=== PATIENT | male | born 1980 | race American Indian/Alaskan Native ===

== ENCOUNTER 2019-09-23 16:52 | Emergency (ER) | payer SELFPAY ==
[2019-09-23 17:45] VITALS: BP 173/81
[2019-09-23] MEDS ORDERED: TETANUS,DIPH,PERTUSS(ACELL) VACCINE 0.5 ML SYRINGE IM ONE (17:47)
--- NOTE | 2019-09-23 17:47 | Event Note ---
ED Screening Note ED Screening Note: piece of metal on his truck slipped and grabbed the piece of metal laceration to the left middle finger one hour ago unsure tetanus immunization This initial assessment/diagnostic orders/clinical plan/treatment(s) is/are subject to change based on patients health status, clinical progression and re- assessment by fellow clinical providers in the ED. Further treatment and workup at subsequent clinical providers discretion. Patient/guardian urged not to elope from the ED as their condition may be serious if not clinically assessed and managed. Initial orders include: tetanus, ACC evaluation
[2019-09-23] MEDS ORDERED: LIDOCAINE-MPF (1%) 10 MG/1 ML VIAL 5 ML ONE (18:54)
[2019-09-23] MEDS ORDERED: BUPIVACAINE/PF (0.25%) 2.5 MG/ML 10 ML VIAL INFILTRATI ONE (18:55)
[2019-09-23] MEDS ORDERED: SODIUM CHLORIDE IRRI 500 ML 500 ML IR ONE (18:57)
[2019-09-23] MEDS ORDERED: SODIUM CHLORIDE 0.9% IRR 500 ML BOTTLE IR ONE ×2 (19:06→19:20)
[2019-09-23] MEDS ORDERED: BUPIVACAINE/PF (0.25%) 2.5 MG/ML 30 ML VIAL INFILTRATI ONE (19:08)
[2019-09-23] MEDS ORDERED: LIDOCAINE (1%) 10 MG/1 ML VIAL 20 ML MDV INFILTRATI ONE (19:10)
[2019-09-23] MEDS ORDERED: LIDOCAINE-MPF (1%) 10 MG/1 ML VIAL 5 ML INFILTRATI ONE (19:11)
--- NOTE | 2019-09-23 19:29 | Emergency Department Report ---
HPI - General Chief Complaint: Wound/Laceration Time Seen by Provider: 09/23/19 17:43 - HPI HPI: Room 36 The patient is a 39-year-old male presenting with a chief complaint finger laceration. The patient states today at 16:30 while working on his car he accidentally cut his left middle finger on a sharp piece of metal. Patient states he does not recall the last time he had a tetanus shot ED Past Medical Hx - Past Medical History Hx Asthma: Yes - Surgical History Past Surgical History?: No - Family History Family history: no significant - Social History Smoking Status: Current Some Day Smoker - Medications Home Medications: Home Medications Medication Instructions Recorded Confirmed Last Taken Type Ibuprofen [Motrin 800 MG tab] 800 mg PO Q8HR PRN #20 tablet 09/23/19 Unknown Rx cephALEXin [Keflex] 500 mg PO Q6HR #28 capsule 09/23/19 Unknown Rx traMADoL [Ultram] 50 mg PO Q6HR PRN #10 tablet 09/23/19 Unknown Rx ED Review of Systems ROS: Stated complaint: LFT MIDDLE FINGER BLEEDING Other details as noted in HPI Constitutional: no symptoms reported Respiratory: no symptoms reported Endocrine: no symptoms reported Skin: other (laceration) Physical Exam - Physical Exam Vital Signs: Vital Signs 09/23/19 17:44 Temperature 98.5 F Pulse Rate 66 Respiratory 16 Rate Blood Pressure 173/81 O2 Sat by Pulse 95 Oximetry Physical Exam: GENERAL: The patient is well-developed well-nourished male sitting on stretcher not appearing to be in acute distress. [] HEENT: Normocephalic. Atraumatic. Extraocular motions are intact. Patient has moist mucous membranes. NECK: Supple. Trachea midline CHEST/LUNGS: There is no respiratory distress noted. HEART/CARDIOVASCULAR: Regular. There is no tachycardia. Regular capillary refill left middle finger SKIN: There is an approximately 2.5; laceration to the palmar aspect of the left middle finger just distal to the PIP NEURO: The patient is awake, alert, and oriented. The patient is cooperative. The patient has no focal neurologic deficits. The patient has normal speech MUSCULOSKELETAL: The patient has good flexion and extension of the left middle finger at the PIP DIP and MTP ED Course Vital Signs 09/23/19 17:44 Temperature 98.5 F Pulse Rate 66 Respiratory 16 Rate Blood Pressure 173/81 O2 Sat by Pulse 95 Oximetry - Laceration /Wound Repair Left Finger Wound Location: upper extremity Wound Length (cm): 2 Wound's Depth, Shape: linear Wound Explored: clean Betadine Prep?: Yes Anesthesia: 1% Lidocaine Volume Anesthetic (ccs): 8 (lidocaine 1% plain was mixed with bupivacaine 0.25% in a 1:1 ratio) Suture Size/Type: 4:0, nylon Number of Sutures: 5 Layer Closure?: No Sterile Dressing Applied?: Yes ED Medical Decision Making - Differential Diagnosis finger laceration Critical care attestation.: If time is entered above; I have spent that time in minutes in the direct care of this critically ill patient, excluding procedure time. ED Disposition Clinical Impression: Laceration of left middle finger Disposition: - TO HOME OR SELFCARE Is pt being admited?: No Does the pt Need Aspirin: No Condition: Stable Instructions: Suture Care (ED), Laceration (ED) Additional Instructions: Your sutures need to be removed in 7-10 days. You may follow up with her primary physician or return to the emergency department to have them removed. Prescriptions: cephALEXin [Keflex] 500 mg PO Q6HR #28 capsule Ibuprofen [Motrin 800 MG tab] 800 mg PO Q8HR PRN #20 tablet PRN Reason: Pain, Moderate (4-6) traMADoL [Ultram] 50 mg PO Q6HR PRN #10 tablet PRN Reason: Pain Referrals: [facility] [Outside] - 7-10 days Time of Disposition: 19:32
[2019-09-23] MEDS ORDERED: BACITRACIN ZINC OINT 28.4 GM TP ONE (19:30)
[2019-09-23] MEDS ORDERED: NEOMY 3.5 MG/BACIT 400 UNITS/POLY B 5000 UNITS/GM OINT PACKET TP ONE (19:34)
== END 2019-09-23 19:41 | disposition home or self-care (01) ==
LOC: ED 16:52
DX: S61.213A Laceration without foreign body of left middle finger without damage to nail, initial encounter (principal); J45.909 Unspecified asthma, uncomplicated; F17.200 Nicotine dependence, unspecified, uncomplicated; Z79.899 Other long term (current) drug therapy; W01.118A Fall on same level from slipping, tripping and stumbling with subsequent striking against other sharp object, initial encounter; Y93.89 Activity, other specified; Y92.89 Other specified places as the place of occurrence of the external cause; Y99.0 Civilian activity done for income or pay
CPT/HCPCS: 90471; 90715; A6250

== ENCOUNTER 2019-10-17 16:36 | Emergency (ER) | payer SELFPAY ==
[2019-10-17 17:20] VITALS: BP 150/56
--- NOTE | 2019-10-17 20:33 | Emergency Department Report ---
Suture/Staple Removal - HPI Chief Complaint: Laceration/Recheck/Suture Stated Complaint: SUTURE REMOVAL Time Seen by Provider: 10/17/19 19:31 When Sutures or Cheryl Placed: 09/23/19 Wound Location: left middle finger ED Review of Systems ROS: Stated complaint: SUTURE REMOVAL Other details as noted in HPI Comment: All other systems reviewed and negative ED Past Medical Hx - Past Medical History Previous Medical History?: Yes Hx Asthma: Yes - Surgical History Past Surgical History?: No - Social History Smoking Status: Never Smoker Substance Use Type: None - Medications Home Medications: Home Medications Medication Instructions Recorded Confirmed Last Taken Type Ibuprofen [Motrin 800 MG tab] 800 mg PO Q8HR PRN #20 tablet 09/23/19 Unknown Rx cephALEXin [Keflex] 500 mg PO Q6HR #28 capsule 09/23/19 Unknown Rx traMADoL [Ultram] 50 mg PO Q6HR PRN #10 tablet 09/23/19 Unknown Rx Suture Removal Exam - Exam General: Vital signs noted. No distress. Alert and acting appropriately. Wound: No Pathologic Erythema, No Tenderness, No Drainage, No Pus, No Wound Dehiscence Other Systems: All other systems reviewed and are unremarkable. ED Course Vital Signs 10/17/19 17:20 Temperature 97.3 F L Pulse Rate 64 Respiratory 18 Rate Blood Pressure 150/56 [Right] O2 Sat by Pulse 98 Oximetry ED Recheck MDM - Medical Decision Making pt presents to the ED for suture removal. had sutures placed on 09/23/19 to the left middle finger. there are 5 sutures in placed, healed wound present to the palmar surface of the left middle finger is clean, dry, intact without signs of infection, all sutures removed, no complications, pt tolerated well, no wound dehiscence Critical care attestation.: If time is entered above; I have spent that time in minutes in the direct care of this critically ill patient, excluding procedure time. ED Disposition Clinical Impression: Visit for suture removal Disposition: [id number] TO HOME OR SELFCARE Is pt being admited?: No Does the pt Need Aspirin: No Condition: Stable Instructions: Suture Removal (ED) Additional Instructions: please keep area clean, dry, and covered. wash with soap and water and immediately dry. no hot tub, pool, or soaking in water. follow up with a primary care doctor in the next 2-3 days. return to the emergency room for any new or worsening symptoms. Referrals: KANDICE QUILES MD [Staff Physician] - 2-3 Days [facility] [Outside] - 2-3 Days [facility] [Outside] - 2-3 Days Time of Disposition: 20:38 Print Language: SLOVENIAN
== END 2019-10-17 19:45 | disposition home or self-care (01) ==
LOC: ED 16:36
DX: T14.8XXD Other injury of unspecified body region, subsequent encounter (principal); Z53.21 Procedure and treatment not carried out due to patient leaving prior to being seen by health care provider